=== PATIENT | male | born 1970 | race Caucasian/White ===

== ENCOUNTER 2019-10-24 09:48 | Outpatient (CLI) | payer MEDICAID ==
[2019-11-20] MEDS ORDERED: [UNRECOGNIZED DRUG - OTHER] PO (09:23)
[2019-11-20] MEDS ORDERED: IBUP-1223 PO (09:23)
[2019-11-20] MEDS ORDERED: NAPR220C62 PO (09:23)
== END 2019-10-24 23:59 | disposition home or self-care (01) ==
LOC: CFH 09:48
PROVIDERS: ATTEND Internal Medicine Cardiovascular Disease
DX: R06.02 Shortness of breath (principal)
CPT/HCPCS: 93306

== ENCOUNTER → 2019-11-20 | Outpatient (CLI) | payer MEDICAID ==
[~2019-11-20] MED LIST: IBUP-1223 PO; NAPR220C62 PO; [UNRECOGNIZED DRUG - OTHER] PO
== END | disposition home or self-care (01) ==
LOC: STAR 08:55
PROVIDERS: ATTEND Orthopaedic Surgery
DX: Z01.818 Encounter for other preprocedural examination (principal); M75.42 Impingement syndrome of left shoulder; M75.22 Bicipital tendinitis, left shoulder; Z88.0 Allergy status to penicillin
CPT/HCPCS: 93005

== ENCOUNTER 2019-11-28 06:28 | Day surgery (SDC) | payer MEDICAID ==
[~2019-11-28] VITALS: Ht 170.2 cm; Wt 66.6 kg
[2019-11-28 06:48] VITALS: BP 130/86
[2019-11-28] MEDS ORDERED: LACTATED RINGERS 1,000 ML IV SCH (06:52)
[2019-11-28] MEDS ORDERED: ONDA4TAB7 PO (06:53)
[2019-11-28] MEDS ORDERED: LIDOCAINE/PF 1%-EPI 1:200K, 30 ML ONE (06:57)
[2019-11-28] MEDS ORDERED: FENTANYL PF 250 MCG/5ML ONE (07:29)
[2019-11-28] MEDS ORDERED: MIDAZOLAM 1 MG/ML, 2ML ONE (07:29)
[2019-11-28] MEDS ORDERED: DEXMEDETOMIDINE 200 MCG/2 ML ONE (07:31)
[2019-11-28] MEDS ORDERED: MIDAZOLAM 1 MG/ML, 5ML ONE (08:21)
[2019-11-28] MEDS ORDERED: CLINDAMYCIN 150 MG/ML, 6ML ONE (08:40)
[2019-11-28] MEDS ORDERED: SUGAMMADEX 200 MG/2 ML IVPush ONE (08:58)
[2019-11-28] MEDS ORDERED: DEXAMETHASONE 4 MG/ML, 1ML ONE (08:58)
[2019-11-28] MEDS ORDERED: ROCURONIUM 10MG/ML,5ML ONE (08:58)
[2019-11-28] MEDS ORDERED: LIDOCAINE-MPF 2% ,5ML ONE (08:58)
[2019-11-28] MEDS ORDERED: PROPOFOL 10 MG/ML, 20ML ONE (08:58)
[2019-11-28] MEDS ORDERED: CEFAZOLIN 1,000 MG ONE (08:58)
[2019-11-28] MEDS ORDERED: ONDANSETRON 2MG/ML, 2ML ONE (08:58)
[2019-11-28] MEDS ORDERED: PROMETHAZINE 25 MG/ML, 1ML IV PRN (09:00)
[2019-11-28] MEDS ORDERED: ACETAMINOPHEN 325 MG TABLET PO PRN (09:00)
[2019-11-28] MEDS ORDERED: OXYcodone 5 MG/5 ML ORAL.SOL UDC PO PRN (09:00)
[2019-11-28] MEDS ORDERED: MEPERIDINE/PF 25MG/ML,1ML IVPush PRN (09:00)
[2019-11-28] MEDS ORDERED: HYDROmorphone 2 MG/ML, 1ML IVPush PRN (09:00)
[2019-11-28] MEDS ORDERED: FENTANYL PF 100 MCG/2ML IV PRN (09:00)
[2019-11-28] MEDS ORDERED: hydrALAzine 20 MG/ML, 1ML IV PRN (09:00)
[2019-11-28] MEDS ORDERED: ROPIvacaine/PF 0.5%, 30 ML ONE (09:03)
== END 2019-11-28 11:30 | disposition home or self-care (01) ==
LOC: OUT 06:28
PROVIDERS: ATTEND Orthopaedic Surgery
DX: S43.432A Superior glenoid labrum lesion of left shoulder, initial encounter (principal); M75.42 Impingement syndrome of left shoulder; M65.812 Other synovitis and tenosynovitis, left shoulder; M75.02 Adhesive capsulitis of left shoulder; F17.200 Nicotine dependence, unspecified, uncomplicated; Z79.1 Long term (current) use of non-steroidal anti-inflammatories (NSAID); Z88.0 Allergy status to penicillin; Z82.49 Family history of ischemic heart disease and other diseases of the circulatory system; X58.XXXA Exposure to other specified factors, initial encounter; Y93.89 Activity, other specified; Y92.89 Other specified places as the place of occurrence of the external cause; Y99.8 Other external cause status
CPT/HCPCS: 23430; 29823; 29826; 64415; C1713; J0690; J1100; J2250; J2405; J2704; J2795; J3010; J3490; J7120